=== PATIENT | female | born 1955 | race Caucasian/White ===

== ENCOUNTER 2019-03-09 06:06 | Emergency (ER) | payer MEDICAID ==
[~2019-03-09] VITALS: Ht 152.4 cm; Wt 54.5 kg
[2019-03-09 06:18] VITALS: Ht 152.4 cm; Wt 54.5 kg
[2019-03-09 07:39] VITALS: BP 127/84
== END 2019-03-09 07:41 | disposition home or self-care (01) ==
LOC: D.ER 06:06
DX: S00.83XA Contusion of other part of head, initial encounter (principal); S06.9X1A Unspecified intracranial injury with loss of consciousness of 30 minutes or less, initial encounter; W22.8XXA Striking against or struck by other objects, initial encounter; Y93.9 Activity, unspecified; Y92.9 Unspecified place or not applicable; G30.9 Alzheimer's disease, unspecified; F02.80 Dementia in other diseases classified elsewhere, unspecified severity, without behavioral disturbance, psychotic disturbance, mood disturbance, and anxiety; I10 Essential (primary) hypertension; K21.9 Gastro-esophageal reflux disease without esophagitis